=== PATIENT | female | born 1985 | race Caucasian/White ===

== ENCOUNTER 2018-12-03 15:21 | Emergency (ER) | payer BC ==
[2018-12-03] MEDS ORDERED: Ketorolac 60 MG/2 ML SDV IM ONE (15:49)
--- NOTE | 2018-12-03 15:59 | EDM.PDOC ---
ED HPI GENERAL MEDICAL PROBLEM - General Chief Complaint: Respiratory Problem Stated Complaint: PAIN WHEN BREATHING IN Time Seen by Provider: 12/03/18 15:24 Source of Information: Reports: Patient History Limitations: Reports: No Limitations - History of Present Illness INITIAL COMMENTS - FREE TEXT/NARRATIVE: Presents reporting a 2 to three-day history of mid sternal and left upper chest pain and tenderness with a deep breath and moving in certain positions. 10-pack -year smoking history. She is otherwise healthy except for obesity. No fever, shortness of breath, sore throat, ear facial fullness, cough. 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 Psychiatric History: Reports: Other (See Below) Other Psychiatric History: ECT - Past Surgical History HEENT Surgical History: Reports: Adenoidectomy, Tonsillectomy Female Surgical History: Reports: Tubal Ligation Musculoskeletal Surgical History: Reports: Other (See Below) Other Musculoskeletal Surgeries/Procedures:: bursitis Social & Family History - Family History Family Medical History: Noncontributory Cardiac: Reports: Blood Clots/VTE/DVT Other Dermatologic Family History: Factor 5, Genetic Heart Problem - Tobacco Use Smoking Status *Q: Current Every Day Smoker Years of Tobacco use: 16 Packs/Tins Daily: 1 - Caffeine Use Caffeine Use: Reports: Soda - Recreational Drug Use Recreational Drug Use: No ED ROS GENERAL - Review of Systems Review Of Systems: ROS reveals no pertinent complaints other than HPI. ED EXAM, GENERAL - Physical Exam Exam: See Below Exam Limited By: No Limitations General Appearance: Alert, No Apparent Distress Ears: Normal External Exam, Normal TMs Nose: Normal Inspection Throat/Mouth: Normal Inspection Head: Atraumatic, Normocephalic Neck: Normal Inspection Respiratory/Chest: No Respiratory Distress, Lungs Clear, Normal Breath Sounds. No: Chest Non-Tender (Tenderness over the upper sternum and left upper chest just medial to the midclavicular line.) Cardiovascular: Normal Peripheral Pulses, Regular Rate, Rhythm, No Murmur GI/Abdominal: Soft Neurological: Alert, Oriented Psychiatric: Normal Affect, Normal Mood Skin Exam: Warm, Dry, Intact, Normal Color, No Rash Lymphatic: No Adenopathy Course - Vital Signs Last Recorded V/S: Last Vital Signs Temp 36.1 C 12/03/18 15:26 Pulse 79 12/03/18 15:26 Resp 20 12/03/18 15:26 BP 129/85 12/03/18 15:26 Pulse Ox - Orders/Labs/Meds Orders: Active Orders 24 hr Category Date Time Status Ketorolac [Toradol] Med 12/03/18 15:49 Once 60 mg IM ONETIME ONE Departure - Departure Time of Disposition: 15:54 Disposition: Home, Self-Care 01 Condition: Good Clinical Impression: Costochondritis - Discharge Information *PRESCRIPTION DRUG MONITORING PROGRAM REVIEWED*: Not Applicable *COPY OF PRESCRIPTION DRUG MONITORING REPORT IN PATIENT [place]: Not Applicable Referrals: [facility] [Outside] [facility] [Outside] Additional Instructions: 1. Prednisone 2 tabs daily for 5 days, start today 2. Stop smoking 3. Take plenty of fluids 4. Follow-up in primary care - My Orders Last 24 Hours: My Active Orders 12/03/18 15:49 Ketorolac [Toradol] 60 mg IM ONETIME ONE - Assessment/Plan Last 24 Hours: My Active Orders 12/03/18 15:49 Ketorolac [Toradol] 60 mg IM ONETIME ONE
== END 2018-12-03 16:10 | disposition home or self-care (01) ==
LOC: MW.ED 15:21
DX: M94.0 Chondrocostal junction syndrome [Tietze] (principal); F17.210 Nicotine dependence, cigarettes, uncomplicated; Z79.899 Other long term (current) drug therapy
CPT/HCPCS: 96372; 99284; J1885; 99283

== ENCOUNTER 2019-01-17 15:45 | Emergency (ER) | payer BC ==
[2019-01-17] MEDS ORDERED: Ketorolac 60 MG/2 ML SDV IM ONE (15:56)
--- NOTE | 2019-01-17 15:56 | EDM.PDOC ---
ED HPI GENERAL MEDICAL PROBLEM - General Stated Complaint: BACK SHOULDER AND NECK PAIN Time Seen by Provider: 01/17/19 15:51 Source of Information: Reports: Patient History Limitations: Reports: No Limitations - History of Present Illness INITIAL COMMENTS - FREE TEXT/NARRATIVE: HISTORY AND PHYSICAL: History of present illness: Patient is a 33-year-old female who presents to the emergency room today with complaints of thoracic back pain after a fall at 9:30 this morning. She states that she was taking her dog out for a walk when he got excited and pulled on the leash. She fell onto her bottom and had slid down several stairs. She is guesstimated 10-20 steps. She denies hitting her head or having any loss of consciousness. Currently complaining of some upper lumbar and thoracic back pain. States she has been taking Tylenol and ibuprofen without any relief. Pain is progressively gotten Review of systems: As per history of present illness and below otherwise all systems reviewed and negative. Past medical history: As per history of present illness and as reviewed below otherwise noncontributory. Surgical history: As per history of present illness and as reviewed below otherwise noncontributory. Social history: See social history for further information Family history: As per history of present illness and as reviewed below otherwise noncontributory. Physical exam: General: Well-developed and well-nourished 33-year-old female. Alert and oriented. Nontoxic appearing and in no acute distress. HEENT: Atraumatic, normocephalic, pupils equal and reactive bilaterally, negative for conjunctival pallor or scleral icterus, mucous membranes moist, TMs normal bilaterally, throat clear, neck supple, nontender, trachea midline. No drooling or trismus noted. No meningeal signs. No hot potato voice noted. Lungs: Clear to auscultation, breath sounds equal bilaterally, chest nontender. Heart: S1S2, regular rate and rhythm without overt murmur Abdomen: Soft, nondistended, nontender. Negative for masses or hepatosplenomegaly. Negative for costovertebral tenderness. Pelvis: Stable nontender. Genitourinary: Deferred. Rectal: Deferred. C-spine/Back: No pinpoint vertebral tenderness upon palpation. No crepitus, step -offs or obvious deformities. Patient is ambulatory into the emergency room without difficulty or deficits. Bilateral paraspinal muscular tenderness to the mid thoracic spine into the upper lumbar spine, right side greater than left. Able to rock back on heels and walk on toes without difficulty. Denies any urinary or fecal incontinence. Denies any numbness, tingling or saddle paresthesia. Skin: Intact, warm, dry. No lesions or rashes noted. Extremities: Atraumatic, moves all extremities per self without difficulty or deficits, negative for cords or calf pain. Neurovascular unremarkable. Neuro: Awake, alert, oriented. Cranial nerves II through XII unremarkable. Cerebellum unremarkable. Motor and sensory unremarkable throughout. Exam nonfocal. Notes: Patient denies hitting her head or having any loss of consciousness, declines a head CT. He is agreeable to imaging of the cervical to lumbar spine. X-ray shows no acute findings. Medication education and supportive care measures were reviewed and discussed. Voices understanding and is agreeable to plan of care. Denies any further questions or concerns at this time. Diagnostics: Thoracic x-ray, cervical spine x-ray, lumbar spine x-ray Therapeutics: Toradol IM, Norflex IM Prescription: Flexeril (#20) Diclofenac (#30) Impression: Fall Back pain Plan: 1. The medication he received as an injection today does cause drowsiness so do not drive for the remaining day 2. When resting please lay on a flat firm surface. Limit your immobility to prevent muscle stiffness, get up to ambulate/move around/gentle stretching multiple times throughout the day. May alternate heat and ice to the painful areas 3. Tylenol and Diclofenac as needed and as directed for back pain. Flexeril as directed, this medication may cause drowsiness a do not take it will driving her needing to be functioning outside of the house. 4. Please follow-up with your primary care provider as we discussed. Return to the ED as needed and as discussed. Definitive disposition and diagnosis as appropriate pending reevaluation and review of above. 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 Psychiatric History: Reports: Other (See Below) Other Psychiatric History: ECT - Past Surgical History HEENT Surgical History: Reports: Adenoidectomy, Tonsillectomy Female Surgical History: Reports: Tubal Ligation Musculoskeletal Surgical History: Reports: Other (See Below) Other Musculoskeletal Surgeries/Procedures:: bursitis Social & Family History - Family History Family Medical History: Noncontributory Cardiac: Reports: Blood Clots/VTE/DVT Other Dermatologic Family History: Factor 5, Genetic Heart Problem - Caffeine Use Caffeine Use: Reports: Soda ED ROS GENERAL - Review of Systems Review Of Systems: ROS reveals no pertinent complaints other than HPI. ED EXAM, UPPER BACK/NECK PAIN - Physical Exam Exam: See Below (See dictation) Course - Vital Signs Last Recorded V/S: Last Vital Signs Temp 95.9 F 01/17/19 15:55 Pulse 85 01/17/19 15:55 Resp 16 01/17/19 15:55 BP 149/93 H 01/17/19 15:55 Pulse Ox 94 L 01/17/19 15:55 - Orders/Labs/Meds Meds: Medications Discontinued Medications Generic Name Dose Route Start Last Admin Trade Name Freq PRN Reason Stop Dose Admin Ketorolac Tromethamine 60 mg 01/17/19 15:56 01/17/19 16:08 Toradol IM 01/17/19 15:57 60 mg ONETIME ONE Administration Orphenadrine Citrate 60 mg 01/17/19 15:56 01/17/19 16:08 Norflex IM 01/17/19 15:57 60 mg NOW STA Administration Departure - Departure Time of Disposition: 17:11 Disposition: Home, Self-Care 01 Clinical Impression: Back pain Qualifiers: Back pain location: thoracic back pain Chronicity: acute Back pain laterality: bilateral Qualified Code(s): M54.6 - Pain in thoracic spine Fall Qualifiers: Encounter type: initial encounter Qualified Code(s): W19.XXXA - Unspecified fall, initial encounter - Discharge Information Prescriptions: Cyclobenzaprine [Flexeril] 10 mg PO TID PRN #20 tab PRN Reason: muscle Diclofenac Sodium [Voltaren] 75 mg PO BIDMEALS PRN #30 tab.cr PRN Reason: Pain Instructions: Acute Back Pain, Adult Referrals: PCP,Unknown [Primary Care Provider] - Additional Instructions: The following information is given to patients seen in the emergency department who are being discharged to home. This information is to outline your options for follow-up care. We provide all patients seen in our emergency department with a follow-up referral. The need for follow-up, as well as the timing and circumstances, are variable depending upon the specifics of your emergency department visit. If you don't have a primary care physician on staff, we will provide you with a referral. We always advise you to contact your personal physician following an emergency department visit to inform them of the circumstance of the visit and for follow-up with them and/or the need for any referrals to a consulting specialist. The emergency department will also refer you to a specialist when appropriate. This referral assures that you have the opportunity for follow-up care with a specialist. All of these measure are taken in an effort to provide you with optimal care, which includes your follow-up. Under all circumstances we always encourage you to contact your private physician who remains a resource for coordinating your care. When calling for follow-up care, please make the office aware that this follow-up is from your recent emergency room visit. If for any reason you are refused follow-up, please contact the [facility] at and asked to speak to the emergency department charge nurse. [facility] [address] [place] [id number] [address] 1. The medication he received as an injection today does cause drowsiness so do not drive for the remaining day 2. When resting please lay on a flat firm surface. Limit your immobility to prevent muscle stiffness, get up to ambulate/move around/gentle stretching multiple times throughout the day. May alternate heat and ice to the painful areas 3. Tylenol and Diclofenac as needed and as directed for back pain. Flexeril as directed, this medication may cause drowsiness a do not take it will driving her needing to be functioning outside of the house. 4. Please follow-up with your primary care provider as we discussed. Return to the ED as needed and as discussed.
--- NOTE | 2019-01-17 16:54 | CT ---
INDICATION: Fall TECHNIQUE: CT head without contrast. COMPARISON: None FINDINGS: CSF spaces: Within normal limits for age. Brain parenchyma: The haque-white differentiation is normal. No sign of mass, hemorrhage, or midline shift. Skull base and calvarium: Ethmoid, maxillary and sphenoid sinus disease. The visualized orbits are grossly unremarkable. No skull fractures. IMPRESSION: Atraumatic appearance of the brain. Dictated by Alejandro Pereira MD @ 01/17/2019 4:51:53 PM Please note that all CT scans at this facility use dose modulation, iterative reconstruction, and/or weight-based dosing when appropriate to reduce radiation dose to as low as reasonably achievable. Dictated by: Alejandro Pereira MD @ 01/17/2019 16:51:57 (Electronically Signed)
--- NOTE | 2019-01-17 17:30 | CR ---
INDICATION: Cervical spine injury from fall TECHNIQUE: Cervical spine radiograph 4 views COMPARISON: None FINDINGS: Bone: No acute fractures or aggressive bone lesions are identified. Alignment is normal. MACEDONIAN view shows unremarkable left pedicles. Disc: The disc spaces are unremarkable in appearance. The facet joints are unremarkable. Soft tissue: Unremarkable. No radiopaque foreign bodies are seen. IMPRESSION: 1. No acute osseous injuries or abnormalities are noted. Dictated by: Carl Sosa MD @ 01/17/2019 17:29:50 (Electronically Signed)
--- NOTE | 2019-01-17 17:33 | CR ---
INDICATION: Lumbar spine injury from fall TECHNIQUE: Lumbar spine radiograph 3 views COMPARISON: None FINDINGS: Moderate degradation of image quality noted due to body habitus. Bone: No acute fractures or aggressive bone lesions are identified. Alignment is normal. Chronic limbus deformity noted in the superior endplate of L4. Disc: The disc spaces are unremarkable in appearance. The facet joints are unremarkable. Soft tissue: Bilateral tubal ligation clips noted. No radiopaque foreign bodies are seen. IMPRESSION: 1. No acute osseous injuries or abnormalities are noted. Dictated by: Carl Sosa MD @ 01/17/2019 17:31:27 (Electronically Signed)
--- NOTE | 2019-01-17 17:41 | CR ---
INDICATION: Thoracic spine injury from fall TECHNIQUE: Thoracic spine radiograph 3 views COMPARISON: None FINDINGS: Moderate degradation of image quality noted due to body habitus. Bone: No acute fractures or aggressive bone lesions are identified. Alignment is normal. Disc: The disc spaces are unremarkable in appearance. The facet joints are unremarkable. Soft tissue: Unremarkable. No radiopaque foreign bodies are seen. IMPRESSION: 1. No acute osseous injuries or abnormalities are noted. Dictated by: Carl Sosa MD @ 01/17/2019 17:39:12 (Electronically Signed)
== END 2019-01-17 18:00 | disposition home or self-care (01) ==
LOC: MW.ED 15:45
DX: M54.6 Pain in thoracic spine (principal); Z79.899 Other long term (current) drug therapy; W10.9XXA Fall (on) (from) unspecified stairs and steps, initial encounter
CPT/HCPCS: 70450; 72040; 72072; 72100; 96372; 99284; J1885; J2360